=== PATIENT | male | born 1940 | race Caucasian/White ===

== ENCOUNTER → 2017-12-03 | Outpatient (CLI) | payer MEDICARE | LOC: CFH 15:33 | PROVIDERS: ATTEND Otolaryngology | DX: M43.22 Fusion of spine, cervical region (principal); J32.9 Chronic sinusitis, unspecified | CPT/HCPCS: 70486 ==

== ENCOUNTER 2019-11-17 08:15 | Outpatient (CLI) | payer MEDICARE ==
[~2019-11-17 08:15] MED LIST: REGADENOSON 0.4 MG/5 ML SYRINGE ONE
== END 2019-11-17 23:59 | disposition home or self-care (01) ==
LOC: CFH 08:15
PROVIDERS: ATTEND Internal Medicine Cardiovascular Disease
DX: R06.02 Shortness of breath (principal); R94.31 Abnormal electrocardiogram [ECG] [EKG]
CPT/HCPCS: 78452; 93017; A9502; J2785